=== PATIENT | female | born 1955 | race Caucasian/White ===

== ENCOUNTER 2023-11-23 19:52 | Emergency (ER) | payer MEDICARE, SELFPAY ==
[2023-11-23 20:00] VITALS: BP 152/86
[2023-11-23 20:51] LABS: % Basophils 0.4 % (0-2); % Eosinophils 0.9 % (0-6); % Immature Granulocytes 0.4 % (0-0.5); % Lymphocytes 16.3 % (20.5-51.1); % Monocytes 5.5 % (1.7-9.3); % Neutrophils 76.5 % (42.2-75.2); Absolute Eosinophils 0.1 10^3/uL (0-0.7); Absolute Lymphocytes 1.8 10^3/uL (1.2-3.4); Absolute Monocytes 0.6 10^3/uL (0.1-0.6); Absolute Neutrophils 8.4 10^3/uL (1.4-6.5); Hematocrit 34.8 % (37.0-47.0); Hemoglobin 11.7 g/dL (12.0-16.0); Mean Corp Hgb Conc. 33.6 g/dL (33.0-37.0); Mean Corpuscular Hgb 26.2 pg (27.0-31.0); Mean Platelet Volume 9.4 fL (7.4-10.4); Nucleated Red Blood Cells % 0 %; Platelet Count 406 10^3/uL (130-400); Red Blood Cell Count 4.46 10^6/uL (4.20-5.40); Red Cell Dist. Width 14.4 % (11.5-14.5); White Blood Cell Count 10.9 10^3/uL (4.8-10.8)
[2023-11-23 21:02] LABS: Lactic Acid 0.8 mmol/L (0.7-2.0)
[2023-11-23 21:04] LABS: ALT (SGPT) < 10 U/L (0-35); AST (SGOT) 12 U/L (14-36); Alkaline Phosphatase 91 U/L (38-126); Blood Urea Nitrogen 11 mg/dl (7-17); Calcium 9.8 mg/dl (8.4-10.2); Carbon Dioxide 28 mmol/L (22-30); Chloride 96 mmol/L (98-107); Glucose 133 mg/dl (70-99); Potassium 4.3 mmol/L (3.5-5.1); Sodium 138 mmol/L (135-145); Total Bilirubin 0.7 mg/dl (0.2-1.3); Total Protein 7.6 g/dl (6.3-8.2); eGFR > 60.00
[2023-11-23 21:24] LABS: Lipase 69 U/L (23-300)
--- NOTE | 2023-11-24 00:42 | ED.GENMED ---
History of Present Illness
General
Chief Complaint: Abdominal Pain
Source: patient
Time Seen by Provider: 11/23/23 23:48
Travel History
Have you had any contact with someone who has COVID-19?: No
Do you have any symptoms of coronavirus? Fever > 100 degrees, chills, cough, shortness of breath, sore throat, loss of taste or smell, muscle aches, or headache?: No
History of Present Illness
History of Present Illness:
68-year-old female presents emergency room complaining of nausea, vomiting and abdominal pain. Patient has been feeling unwell for the past couple days. She has not been able to keep much in the way of fluids down. She has had a normal bowel
movement today. Patient has had 1 previous abdominal operation 30 or 40 years ago for PID and what sounds like a TOA. Patient has not taken any juxi-qqs-[id number] medications.
Phy Exam
Physical Exam
Physical Exam:
General: Awake, Alert, Oriented X3. No acute distress.
Vitals: unremarkable
Head: Atraumatic
Eyes: Pupils equal, EOMI
Throat: Airway intact, no exudates
Neck: Trachea midline
Lungs: Clear and equal b/l
Heart: Regular rate, no murmurs
Abd: Soft, mild to moderate tenderness to palpation, No pulsatile mass
Back: No CVA tenderness to percussion
Neuro: Nonfocal
Skin: Warm, dry, no rash
Extremities: pulses equal b/l, no edema
Course
Orders/Labs/Results
Orders:
Orders
11/23/23 20:13
Complete Blood Count/With Diff Urgent
Comprehensive Metabolic Panel Urgent
Lactic Acid Urgent
Lipase Urgent
Blood Culture Urgent
BRIAN Source: Blood/Venous
Specimen Description:
11/24/23 00:41
0.9% Sodium Chloride 1000 ml [Nss] 1,000 ml IV BOLUS
Iohexol [Omnipaque] See Protocol PO NOW STA
Ketorolac [Toradol] 15 mg IV NOW STA
Ondansetron Injectable [Zofran] 4 mg IV NOW STA
11/24/23 00:42
CT Abd/pel W Iv And Oral Contr Urgent
Comment:
Reason For Exam: abd pain, vomiting
11/24/23 03:58
LevoFLOXacin [Levaquin] 750 mg PO NOW STA
MetroNIDAZOLE [Flagyl] 500 mg PO NOW STA
Abnormal Lab Results
11/23/23
20:13
WBC 10.9 H 10^3/uL
(4.8-10.8)
Hgb 11.7 L g/dL
(12.0-16.0)
Hct 34.8 L %
(37.0-47.0)
MCV 78.0 L fL
(81.0-99.0)
MCH 26.2 L pg
(27.0-31.0)
Plt Count 406 H 10^3/uL
(130-400)
Absolute Neuts (auto) 8.4 H 10^3/uL
(1.4-6.5)
Neutrophils % 76.5 H %
(42.2-75.2)
Lymphocytes % 16.3 L %
(20.5-51.1)
Chloride 96 L mmol/L
(98-107)
Glucose 133 H mg/dl
(70-99)
AST 12 L U/L
(14-36)
11/23/23 20:13
11/23/23 20:13
Vital Signs
Initial and Last Documented VS:
Initial Vital Signs
Temp Pulse Resp BP Pulse Ox
98.6 F 86 20 152/86 98
11/23/23 20:00 11/23/23 20:00 11/23/23 20:00 11/23/23 20:00 11/23/23 20:00
Last Documented Vital Signs
Temp Pulse Resp BP Pulse Ox
98.6 F 86 20 136/69 99
11/23/23 20:00 11/23/23 20:00 11/23/23 20:00 11/24/23 02:00 11/24/23 02:00
MDM/Problems Addressed
Differential Diagnosis Includes:
Diverticulitis, enteritis, bowel obstruction
MDM/Problems Addressed:
Patient presents with nausea vomiting and lower abdominal pain. CT shows diverticulitis. Patient has been tolerating oral intake here. She consumed 2 cups of contrast without difficulty. Will discharge her on Levaquin, Flagyl and Zofran.
*Radiology
Radiology exam reviewed: other ([facility] report notes diverticulitis)
*Pulse Oximetry
Patient hypoxic: no
*Critical Care Note
Total Time (30-74mins, 75-104mins- exclusive of procedures): Not Applicable
ED Attending Note
-
Portions of this chart may have been created with voice recognition software.� Occasional wrong word or��sound alike� substitutions may have occurred due to the inherent limitations of voice recognition software.
Discharge Plan
Departure
Patient Disposition: Home (Routine Discharge)
Date of Disposition: 11/24/23
Time of Disposition: 04:00
Patient with high blood pressure during this ER visit?: Yes
Condition: Good
Discharge Problem:
Acute diverticulitis
Instructions: Diverticulitis (DC), BLOOD PRESSURE
Prescriptions:
New
levofloxacin 750 mg tablet
750 mg PO DAILY 7 Days Qty: 7 0RF
metronidazole 500 mg tablet
500 mg PO TID Qty: 21 0RF
ondansetron 4 mg tablet,disintegrating
4 mg PO TID PRN (Reason: nausea and vomiting) 3 Days Qty: 9 0RF
No Action
calcium carbonate-vitamin D3 1 EACH tablet,chewable
1 tab PO DAILY
fnjxvqdb-xsh-nlvd fum-folic ac 1 EACH tablet
1 ea PO DAILY
Referrals:
Alis Jama CRNP [Family Provider] -
Activity Restrictions/Additional Instructions:
Please return to the emergency room if you develop a fever or not able to keep the medications down.
Interventions
Interventions:
*Risk Screen - Suicide Last Done: 11/23/23 20:00
*General Assessment Last Done: 11/23/23 20:00
*Neglect/Abuse Screening Last Done: 11/23/23 20:00
ED- Fall Risk Assessment Last Done: 11/24/23 01:07
*ED COVID-19 Vaccine History Last Done: 11/24/23 00:58
PP-Jzrtox-Cgrpinzubk Assessment Last Done: 11/24/23 01:07
[2023-11-24 00:57] VITALS: BP 131/77
[2023-11-24 00:58] VITALS: BMI 23.1
[2023-11-24] MEDS: TORADOL 15 MG IV (01:02)
[2023-11-24] MEDS: ZOFRAN 4 MG IV (01:02)
[2023-11-24] MEDS: OMNIPAQUE 50 ML PO (01:02)
[2023-11-24] MEDS: NSS 1000 IV (01:03)
--- NOTE | 2023-11-24 01:42 | EDRN ---
Patient wanted ice out of her contrast cup however is tolerating contrast, another warm blanket provided
[2023-11-24 02:00] VITALS: BP 136/69
[2023-11-24] MEDS: FLAGYL 500 MG PO (04:11)
[2023-11-24] MEDS: LEVAQUIN 750 MG PO (04:11)
--- NOTE | 2023-11-24 04:38 | EDRN ---
Went in to give patient her meds and patient not wanting to take them, Dr. Verma in to speak with patient about importance of taking them patient agreed and discharged to waiting room.
--- NOTE | 2023-12-07 08:44 | OID.L.PAT ---
Pulmonary Nodule Pat Letter
- -
12/07/23
SARAH GONZALEZ
[address] [facility]
[place], [place] [address]
Richa SMITH,
A pulmonary nodule was seen on an imaging study done by [facility]. This was reviewed by the [facility] Pulmonary Nodule Advisory Board and the following recommendation was made:
Recommendation: Based on current guidelines, no further follow up is necessary
If you have any questions, please do not hesitate to contact your primary care physician. If you are in need of a Physician, you can go to [email or web address] and click on 'Find a Provider'. Type 'Family Medicine' in the search.
Oncology Nurse Navigator
[facility]
[phone]
--- NOTE | 2023-12-07 08:45 | OID.L.REC ---
Pulmonary Nodule Follow Up
- Recommendation
12/07/23
Pulmonary Nodule Review Recommendations
Your patient, SARAH GONZALEZ, had a pulmonary nodule seen on a CT Abdomen/Pelvis done on 11/24/23 in the [facility] Emergency Room.
This was reviewed by the [facility] Pulmonary Nodule Advisory Board and the following recommendation was made:
Recommendation: Based on current guidelines, no further follow up is necessary
If you have any questions please do not hesitate to contact us.
Sincerely,
Oncology Nurse Navigator
[facility]
[phone]
== END 2023-11-24 04:42 | disposition home or self-care (01) ==
LOC: EMR 19:52
PROVIDERS: EMERGENCY PHYSICIAN Emergency Medicine; FAMILY PHYSICIAN Nurse Practitioner Family
DX: K57.32 Diverticulitis of large intestine without perforation or abscess without bleeding (principal); R03.0 Elevated blood-pressure reading, without diagnosis of hypertension
CPT/HCPCS: 99284; 96374; 96375; 96361; 74177; 80053; 83605; 83690; 85025; 87040; Q9967

== ENCOUNTER → 2024-08-22 09:50 | Outpatient (REF) | payer MEDICARE, OTHER, SELFPAY | LOC: RAD 09:50 | PROVIDERS: ATTENDING PHYSICIAN Nurse Practitioner Family | DX: D73.89 Other diseases of spleen (principal); R91.1 Solitary pulmonary nodule | CPT/HCPCS: 71250; 76705 ==

== ENCOUNTER → 2024-11-07 10:43 | Outpatient (REF) | payer MEDICARE, OTHER, SELFPAY | LOC: RAD 10:43 | PROVIDERS: ATTENDING PHYSICIAN Nurse Practitioner Family | DX: E07.9 Disorder of thyroid, unspecified (principal) | CPT/HCPCS: 76536 ==